=== PATIENT | male | born 1970 | race Caucasian/White ===

== ENCOUNTER 2018-10-02 20:37 | Emergency (ER) | payer OTHER ==
[~2018-10-02] VITALS: Ht 165.1 cm; Wt 72.6 kg
[2018-10-02 20:37] VITALS: BP 122/80
[~2018-10-02 20:37] MED LIST: BUS5 PO; CLON1TAB PO; EZET1TAB28 PO; GABA300C PO; LEVE750T3 PO; PARO40TA1 PO; PHEN-1438 PO; PHEN100C3 PO
--- NOTE | 2018-10-02 20:37 | NUR ---
PT TRANSFERED SELF FROM [facility] TO BED 10.
--- NOTE | 2018-10-02 20:55 | NUR ---
PICKED UP BY EMS FROM [place] [facility] [place]. PT STATES EATING CHICKEN WHEN HE STARTED HAVING CP AND SOB. LUNGS CLEAR BILAT. 8/10 PAIN. PT DISCHARGED FROM [facility] AT 15:00 WITH DX OF SEIZURES. PT HAS HX OF SEIZURES, CVA, DEPRESSION. PT IS VERBAL BUT HAS DIFFICULTY COMMUNICATING D/T CVA. A&OX4. CALM. VSS. SEIZURE PRECAUTIONS IN PLACE.
[2018-10-02] MEDS ORDERED: LORazepam 1 MG TAB PO ONE (21:00)
--- NOTE | 2018-10-02 21:00 | NUR ---
Dr. Pettit evaluating patient at bedside.
[2018-10-02 21:45] VITALS: BP 116/75
== END 2018-10-02 21:43 | disposition home or self-care (01) ==
LOC: MED 20:37
DX: F41.9 Anxiety disorder, unspecified (principal); Z86.73 Personal history of transient ischemic attack (TIA), and cerebral infarction without residual deficits; Z79.899 Other long term (current) drug therapy
CPT/HCPCS: 71045; 99283; Q0092